=== PATIENT | male | born 1970 | race Asian ===

== ENCOUNTER 2018-11-13 04:39 | Emergency (ER) | payer MEDICAID ==
[~2018-11-13] VITALS: Ht 170.2 cm; Wt 73.0 kg
[2018-11-13] MEDS ORDERED: MORPHINE SULFATE 4 MG/ML CPJ (NOT FOR IM USE) IV STA (08:23)
[2018-11-13] MEDS ORDERED: ONDANSETRON HCL 4MG/2ML INJ IV STA (08:23)
[2018-11-13] MEDS ORDERED: SODIUM CHLORIDE 0.9% 1,000 ML IV ONE (08:23)
[2018-11-13 09:40] LABS: HEMATOCRIT. 41.1 % (42.0-52.0); HEMOGLOBIN. 13.6 g/dL (14.0-18.0); MEAN CORPUSCULAR HEMOGLOBIN 30.7 pg (28.0-32.0); MEAN CORPUSCULAR VOLUME 92.8 fL (80.0-94.0); MEAN PLATELET VOLUME 7.1 fl (7.4-10.4); PLATELET 228 x1000/uL (130-400); RED BLOOD CELL COUNT 4.43 mill/uL (4.7-6.1); RED CELL DISTRIBUTION WIDTH 14.7 % (11.6-14.6)
[2018-11-13 09:46] LABS: CHLORIDE 96 mEq/L (98-107)
[2018-11-13 09:49] LABS: PROTHROMBIN TIME 10.3 sec (9.1-11.1)
[2018-11-13 10:20] LABS: PLATELET ESTIMATE NORMAL
[2018-11-13 11:45] VITALS: BP 133/79
[2018-11-13] MEDS ORDERED: MORPHINE SULFATE 4 MG/ML CPJ (NOT FOR IM USE) IV ONE (11:45)
== END 2018-11-13 13:00 | disposition home or self-care (01) ==
LOC: ER 04:39
DX: S42.401A Unspecified fracture of lower end of right humerus, initial encounter for closed fracture (principal); D64.9 Anemia, unspecified; E87.5 Hyperkalemia; N18.6 End stage renal disease; R74.8 Abnormal levels of other serum enzymes; X58.XXXA Exposure to other specified factors, initial encounter; Y93.89 Activity, other specified; Y92.89 Other specified places as the place of occurrence of the external cause; Y99.8 Other external cause status; Z76.5 Malingerer [conscious simulation]; Z59.0 Homelessness; Z99.2 Dependence on renal dialysis; Z98.890 Other specified postprocedural states
CPT/HCPCS: 36415; 73080; 80053; 85025; 85610; 93971; 96374; 96375; 96376; 99284; J2270; J2405; J7030